=== PATIENT | male | born 1995 | race Caucasian/White ===

== ENCOUNTER 2017-06-09 03:36 | Emergency (ER) | payer BC ==
[~2017-06-09] VITALS: Ht 170.2 cm; Wt 70.1 kg
[2017-06-09 03:41] VITALS: TEMP 37; Ht 170.2 cm; Wt 70.1 kg
[2017-06-09] MEDS ORDERED: AMPH20CA3 PO (03:55)
[2017-06-09] MEDS ORDERED: TRVHP PO (03:56)
[2017-06-09] MEDS ORDERED: OXYCODONE IR HOME PACK PO ONE (04:30)
--- NOTE | 2017-06-09 04:35 | EMERGENCY ROOM VISIT NOTE ---
ED Visit Note First contact with patient: 03:43 CHIEF COMPLAINT: Toothache HISTORY OF PRESENT ILLNESS: This 21-year-old male patient presented to the emergency department ambulatory with a progressive toothache for the past few weeks. The patient states he has had right upper dental pain. For the past 2 days, the pain has worsened and has become so severe that he has having difficulty eating. He has an appointment with his dentist later today, but states he is having difficulty dealing with pain. He denies shortness of breath. He is able to swallow water but states it is painful to swallow. He denies any fevers or drainage from the mouth. He rates his discomfort an 8/10. Denies facial swelling or fever. REVIEW OF SYSTEMS: A 6 system review of systems was completed with positives and pertinent negatives listed in the HPI. ALLERGIES: Cefprozil MEDICATIONS: Truvada PREP, Adderall PMH: No significant past medical history. SOCIAL HISTORY: The patient lives locally. He is a smoker. PHYSICAL EXAM: Vitals are noted on the nurse's note and reviewed by myself. Vital signs stable. Temperature 37.0C orally. GENERAL: This is a 21-year-old male, in no acute distress, nondiaphoretic, well-developed well-nourished. Mouth: There are no obvious dental caries or abscesses. The pharynx and tonsils are without erythema, edema, or exudate. The airway is patent. There is no facial swelling, cervical or submandibular lymphadenopathy. The patient appears uncomfortable and in pain. The patient has overall good dental hygiene. EARS: External auditory canals clear, tympanic membranes pearly zarate without erythema or effusion bilaterally. ED COURSE: The patient was evaluated as above. There is no obvious dental abscess or infection on exam. The patient will be following up with a dentist later today. He is having difficulty controlling the pain at home. He was given a home pack of oxycodone. He was instructed to return here for any worsening or new/concerning symptoms. He verbalized understanding and was discharged home in good condition. Patient was reviewed in the [place] prescription drug monitoring program; no red flags were identified. Medication reconciliation: I attest that I have personally reviewed the patient 's current medication list. Blood pressure screening: Patient was found to have normal blood pressure on screening and does not require follow-up. DIAGNOSIS: Odontalgia Problem List Medical Problems: (1) Migraines Status: Chronic Current/Historical Medications Scheduled Amphetamine-Dextroamphetamine 20MG (Adderall Xr 20MG), 20 MG PO DAILY Emtricitabine/Temofovir (Truvada 200/300MG), 1 TAB PO DAILY Allergies Coded Allergies: Cefprozil (Verified Allergy, Unknown, Unknown, 06/09/17) Reported by PT Vital Signs Date Time Temp Pulse Resp B/P (MAP) Pulse Ox O2 Delivery O2 Flow Rate FiO2 06/09/17 03:41 37.0 89 20 118/85 98 Room Air Departure Information Impression Primary Impression: Dentalgia Dispostion Home / Self-Care Condition GOOD Referrals Doyle Booker D.ORachel (PCP) Patient Instructions My [facility] Additional Instructions You have been treated in the Emergency Department for Dental Pain. You have been given Oxy IR to be used for pain control. This is a narcotic medication. You cannot drive or consume alcohol while on this medicine. This medicine should only be used for pain that cannot be controlled with over-the- counter pain medicines. For pain control, you can use the following [id number] medicines (if >12 yo): - Regular strength (325mg/tab) Tylenol (acetaminophen) 2 tabs every 4-6 hours as needed. Do not exceed 12 tablets in a 24 hour period. Avoid taking more than 4 grams (4000 mg) of Tylenol per day. This includes any other sources of acetaminophen you may take on a regular basis. - Regular strength (200 mg/tab) Advil (ibuprofen) 1-2 tabs every 4-6 hours as needed. Do not exceed a dose of 3200 mg per day. Refrain from smoking cigarettes or using chewing tobacco until you have been evaluated by your dentist. Keeping beverages lukewarm and consuming soft foods can decrease your pain. Warm compresses over the affected area may offer some relief. You MUST seek evaluation of your dental pain by a dentist following your visit to the Emergency Department. The Emergency Department is not capable of treating dental issues long-term. You should call your dentist as soon as possible to make an appointment for evaluation of your dental pain. Return to the emergency department if you develop the following symptoms despite treatment course outlined above: fever, intractable pain, increased redness, swelling, or purulent discharge.
[2017-06-09 04:57] VITALS: BP 123/87; PULSE 115; O2SAT 97
== END 2017-06-09 04:55 | disposition home or self-care (01) ==
LOC: C.EDB 03:38
DX: K08.89 Other specified disorders of teeth and supporting structures (principal); G43.909 Migraine, unspecified, not intractable, without status migrainosus; F17.210 Nicotine dependence, cigarettes, uncomplicated